=== PATIENT | female | born 1995 | race Caucasian/White ===

== ENCOUNTER → 2018-09-13 | Outpatient (CLI) | payer OTHER ==
--- NOTE | 2018-09-13 15:18 | REP ---
LEFT ANKLE SERIES: FOUR VIEWS. HISTORY: Pain in the left ankle. FINDINGS: Four views of the left ankle demonstrate an osteochondral defect lesion in the medial talar dome consistent with osteochondritis desiccans. The lesion measures 6 mm in greatest medial to lateral dimension. There is a radiolucent ring around an ossific density. Ankle mortise is intact. No fractures seen. Soft tissues are unremarkable. 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 Electronically Signed by Pollo Villatoro MD 09/13/2018 04:57 P
--- NOTE | 2018-09-13 15:19 | REP ---
Left foot: Four views. History: Foot pain. Findings: Four views of the left foot demonstrate mild hallux valgus. Overall mineralization pattern is normal. Bones, joints, and soft tissues are otherwise unremarkable. Impression: Negative left foot radiographs. Electronically Signed by Pollo Villatoro MD 09/13/2018 04:56 P
== END ==
LOC: M LRY 14:34
PROVIDERS: ATTEND Physician Assistant
DX: M79.672 Pain in left foot (principal); M25.572 Pain in left ankle and joints of left foot